=== PATIENT | female | born 1945 | race Caucasian/White ===

== ENCOUNTER 2022-12-05 08:53 | Emergency (ER) | payer MEDICARE, OTHER ==
[~2022-12-05] VITALS: Ht 162.6 cm; Wt 84.1 kg
[2022-12-05 09:04] VITALS: BP 150/75; PULSE 98; RESP 18; TEMP 96.3; O2SAT 92
[2022-12-05 10:25] LABS: BASOPHILS % (AUTO) 0.4 % (0-1); EOSINOPHILS # (AUTO) 0.1 X10'3 (0-0.9); EOSINOPHILS % (AUTO) 1.1 % (0-6); HEMATOCRIT 44.1 % (35.0-45.0); HEMOGLOBIN 14.4 g/dl (12.0-16.0); LYMPHOCYTES # (AUTO) 1.2 X10'3 (1.1-4.8); LYMPHOCYTES % (AUTO) 16.2 % (21-51); MEAN CORPUSCULAR HGB CONC 32.7 g/dL (33.0-36.5); MEAN CORPUSCULAR VOLUME 82.8 FL (78-98); MEAN PLATELET VOLUME 8.5 FL (7.4-10.4); MONOCYTES # (AUTO) 0.6 X10'3 (0-0.9); MONOCYTES % (AUTO) 7.6 % (2-12); NEUTROPHILS # (AUTO) 5.6 X10'3 (1.8-7.7); NEUTROPHILS % (AUTO) 74.7 % (42-75); PLATELET COUNT 241 X10'3 (140-440); RED BLOOD COUNT 5.33 X10'6 (4.20-5.60); RED CELL DISTRIBUTION WIDTH 15.5 % (11.5-14.5); WHITE BLOOD COUNT 7.4 X10'3 (4.5-11.0)
[2022-12-05 10:39] LABS: ALANINE AMINOTRANSFERASE 33 U/L (12-78); ALBUMIN 3.3 G/DL (3.4-5.0); ALBUMIN/GLOBULIN RATIO 0.9 (1.1-1.5); ALKALINE PHOSPHATASE 70 IU/L (46-116); ANION GAP 2 (8-16); ASPARTATE AMINO TRANSFERASE 17 U/L (10-37); BILIRUBIN,TOTAL 0.3 MG/DL (0.1-1.0); BLOOD UREA NITROGEN 16 MG/DL (7-18); CALCIUM 9.4 MG/DL (8.5-10.1); CHLORIDE 99 MMOL/L (99-107); CREATININE 0.84 MG/DL (0.40-0.90); GLUCOSE 262 MG/DL (70-104); POTASSIUM 3.9 MMOL/L (3.5-5.1); SODIUM 136 MMOL/L (135-145); TOTAL PROTEIN 6.9 G/DL (6.4-8.2); eCRCL 48 ML/MIN; eGFR 66 ML/MIN
[2022-12-08] MEDS ORDERED: PIOG15TA67 PO (17:53)
[2022-12-08] MEDS ORDERED: VENL75CA61 PO (17:53)
[2022-12-08] MEDS ORDERED: ESOM40CA54 PO (17:54)
[2022-12-08] MEDS ORDERED: OMEG-220 PO (17:54)
[2022-12-08] MEDS ORDERED: SEMA14TA2 PO (17:55)
[2022-12-08] MEDS ORDERED: UMEC1DIS INH (17:55)
[2022-12-08] MEDS ORDERED: IPRA4AER INH (17:55)
[2022-12-08] MEDS ORDERED: BUPR-317 PO (17:56)
[2022-12-08] MEDS ORDERED: ROSU10TA28 PO (18:23)
[2022-12-08] MEDS ORDERED: EMPA1TAB19 PO (18:23)
[2022-12-08] MEDS ORDERED: PRAM0.5T12 PO (18:24)
[2022-12-08] MEDS ORDERED: ACET-1017 PO (18:25)
[2022-12-08] MEDS ORDERED: CALC1CAP21 PO (18:26)
[2022-12-08] MEDS ORDERED: FERR-28 PO (18:27)
[2022-12-08] MEDS ORDERED: MAGN400T39 PO (18:27)
[2022-12-10] MEDS ORDERED: CEPH250T PO (14:23)
== END 2022-12-05 11:02 | disposition home or self-care (01) ==
LOC: ER 08:54
DX: L03.116 Cellulitis of left lower limb (principal); J44.9 Chronic obstructive pulmonary disease, unspecified; E11.9 Type 2 diabetes mellitus without complications
CPT/HCPCS: 36415; 80053; 85025; 99283

== ENCOUNTER 2022-12-14 08:58 | Emergency (ER) | payer MEDICARE, OTHER ==
[~2022-12-14] VITALS: Ht 162.6 cm; Wt 83.2 kg
[~2022-12-14 08:58] MED LIST: ACET-1017 PO; BUPR-317 PO; CALC1CAP21 PO; CEPH250T PO; EMPA1TAB19 PO; ESOM40CA54 PO; FERR-28 PO; IPRA4AER INH; MAGN400T39 PO; OMEG-220 PO; PIOG15TA67 PO; PRAM0.5T12 PO; ROSU10TA28 PO; SEMA14TA2 PO; UMEC1DIS INH; VENL75CA61 PO
[2022-12-14 12:37] LABS: BASOPHILS % (AUTO) 0.3 % (0-1); EOSINOPHILS # (AUTO) 0.1 X10'3 (0-0.9); EOSINOPHILS % (AUTO) 1.1 % (0-6); HEMOGLOBIN 14.9 g/dl (12.0-16.0); LYMPHOCYTES # (AUTO) 1.4 X10'3 (1.1-4.8); LYMPHOCYTES % (AUTO) 16.1 % (21-51); MEAN CORPUSCULAR HEMOGLOBIN 27.3 PG (27.0-31.0); MEAN CORPUSCULAR HGB CONC 33.2 g/dL (33.0-36.5); MEAN CORPUSCULAR VOLUME 82.3 FL (78-98); MEAN PLATELET VOLUME 8.7 FL (7.4-10.4); MONOCYTES # (AUTO) 0.6 X10'3 (0-0.9); MONOCYTES % (AUTO) 7.2 % (2-12); NEUTROPHILS # (AUTO) 6.4 X10'3 (1.8-7.7); NEUTROPHILS % (AUTO) 75.3 % (42-75); PLATELET COUNT 246 X10'3 (140-440); RED BLOOD COUNT 5.46 X10'6 (4.20-5.60); RED CELL DISTRIBUTION WIDTH 15.7 % (11.5-14.5); WHITE BLOOD COUNT 8.5 X10'3 (4.5-11.0)
[2022-12-14 12:43] LABS: ALANINE AMINOTRANSFERASE 41 U/L (12-78); ALBUMIN 3.7 G/DL (3.4-5.0); ALKALINE PHOSPHATASE 72 IU/L (46-116); ANION GAP 6 (8-16); ASPARTATE AMINO TRANSFERASE 26 U/L (10-37); BILIRUBIN,TOTAL 0.5 MG/DL (0.1-1.0); BLOOD UREA NITROGEN 18 MG/DL (7-18); BUN/CREATININE RATIO 24.3 (10.0-20.0); CALCIUM 9.4 MG/DL (8.5-10.1); CHLORIDE 99 MMOL/L (99-107); CREATININE 0.74 MG/DL (0.40-0.90); GLUCOSE 176 MG/DL (70-104); POTASSIUM 4.1 MMOL/L (3.5-5.1); SODIUM 137 MMOL/L (135-145); TOTAL CARBON DIOXIDE 32.1 MMOL/L (24-32); TOTAL PROTEIN 7.4 G/DL (6.4-8.2); eCRCL 55 ML/MIN; eGFR 76 ML/MIN
[2022-12-14 13:13] LABS: BILIRUBIN,URINE NEGATIVE (Neg); CLARITY,URINE CLEAR (Clear); COLOR,URINE YELLOW (Yellow); GLUCOSE, URINE >=1000 mg/dl (Neg); KETONES,URINE NEGATIVE (Neg); LEUKOCYTE ESTERASE ,URINE NEGATIVE (Neg); NITRITES, URINE NEGATIVE (Neg); OCCULT BLOOD,URINE NEGATIVE (Neg); PH,URINE 6.5 (4.8-8.0); PROTEIN,URINE NEGATIVE (Neg); UROBILINOGEN,URINE 0.2 E.U/dL (0.2-1.0)
[2022-12-14 13:16] LABS: UA COLLECTION TYPE CLN CATCH MIDSTREAM
[2022-12-14 13:29] LABS: SQUAMOUS EPITHELIAL CELL,UR MODERATE /LPF (FEW)
[2022-12-14] MEDS ORDERED: DOXY-411 PO (13:32)
[2022-12-14 13:34] LABS: BACTERIA,URINE FEW /HPF (Neg); RBC,URINE 0-2 /HPF (0-2); WBC,URINE 0-4 /HPF (0-4)
[2022-12-14] MEDS ORDERED: CLIN300C54 PO (13:59)
[2022-12-14] MEDS ORDERED: CIPR-259 PO (14:03)
[2022-12-14 14:12] VITALS: BP 129/66; PULSE 93; RESP 18; TEMP 98.3; O2SAT 96
== END 2022-12-14 14:17 | disposition home or self-care (01) ==
LOC: ER 08:59
DX: L03.115 Cellulitis of right lower limb (principal); J44.9 Chronic obstructive pulmonary disease, unspecified; E11.9 Type 2 diabetes mellitus without complications; Z88.0 Allergy status to penicillin; Z88.2 Allergy status to sulfonamides; Z88.6 Allergy status to analgesic agent; Z79.899 Other long term (current) drug therapy
CPT/HCPCS: 36415; 71045; 80053; 81001; 83605; 84145; 85025; 87040; 99284

== ENCOUNTER 2024-03-09 11:50 | Inpatient (IN) | payer MEDICARE, OTHER ==
[~2024-03-09] VITALS: Ht 162.6 cm; Wt 90.0 kg
[~2024-03-09 11:50] MED LIST changes: -BUPR-317 PO; +BUPR-561 PO; -CEPH250T PO; -ESOM40CA54 PO; +ESOM40CA66 PO; -OMEG-220 PO; +OMEG-270 PO; -ROSU10TA28 PO; +ROSU10TA72 PO
[2024-03-09 12:40] LABS: BASOPHILS % (AUTO) 0.4 % (0-1); EOSINOPHILS # (AUTO) 0.1 X10'3 (0-0.9); EOSINOPHILS % (AUTO) 1.8 % (0-6); HEMATOCRIT 35.7 % (35.0-45.0); HEMOGLOBIN 11.9 g/dl (12.0-16.0); LYMPHOCYTES # (AUTO) 1.1 X10'3 (1.1-4.8); LYMPHOCYTES % (AUTO) 16.1 % (21-51); MEAN CORPUSCULAR HEMOGLOBIN 28.2 PG (27.0-31.0); MEAN CORPUSCULAR HGB CONC 33.4 g/dL (33.0-36.5); MEAN CORPUSCULAR VOLUME 84.4 FL (78-98); MEAN PLATELET VOLUME 8.8 FL (7.4-10.4); MONOCYTES # (AUTO) 0.7 X10'3 (0-0.9); MONOCYTES % (AUTO) 9.8 % (2-12); NEUTROPHILS # (AUTO) 4.9 X10'3 (1.8-7.7); NEUTROPHILS % (AUTO) 71.9 % (42-75); PLATELET COUNT 169 X10'3 (140-440); RED BLOOD COUNT 4.22 X10'6 (4.20-5.60); WHITE BLOOD COUNT 6.9 X10'3 (4.5-11.0)
[2024-03-09 13:02] LABS: ALANINE AMINOTRANSFERASE 14 U/L (12-78); ALBUMIN 2.9 G/DL (3.4-5.0); ALKALINE PHOSPHATASE 62 IU/L (46-116); ASPARTATE AMINO TRANSFERASE 8 U/L (10-37); BILIRUBIN,TOTAL 0.5 MG/DL (0.1-1.0); BLOOD UREA NITROGEN 15 MG/DL (7-18); CALCIUM 8.9 MG/DL (8.5-10.1); CHLORIDE 100 MMOL/L (99-107); CREATININE 0.74 MG/DL (0.40-0.90); GLUCOSE 238 MG/DL (70-104); POTASSIUM 3.8 MMOL/L (3.5-5.1); SODIUM 138 MMOL/L (135-145); TOTAL CARBON DIOXIDE 33.4 MMOL/L (24-32)
[2024-03-09 13:10] LABS: PRO BRAIN NATRIURETIC PEPTIDE 4003 PG/ML (0-450)
[2024-03-09 14:01] LABS: ANION GAP 5 (8-16); BUN/CREATININE RATIO 20.3 (10.0-20.0); eCRCL 54 ML/MIN; eGFR 76 ML/MIN
[2024-03-09 14:02] LABS: ALBUMIN/GLOBULIN RATIO 0.9 (1.1-1.5)
[2024-03-09] MEDS: furosemide 20MG tablet PO ONE (15:09)
[2024-03-09] MEDS: potassium Cl 20 mEq SR tablet PO ONE (15:09)
[2024-03-09] MEDS: furosemide 40mg tablet PO ONE (15:21)
[2024-03-09] MEDS: ipratropium/albuterol 3ml nebule NEB ONE (15:24)
[2024-03-09 15:25] VITALS: PULSE 101; RESP 18; O2SAT 100
[2024-03-09 15:32] VITALS: PULSE 99; RESP 18; O2SAT 99
[2024-03-09] MEDS ORDERED: acetaminophen 325mg tablet PO PRN (23:35)
[2024-03-09] MEDS ORDERED: ondansetron/PF 4mg/2ml inj IV PRN (23:35)
[2024-03-09] MEDS ORDERED: mag hydrox/Alum hydrox/simeth 30ml oral suspension PO PRN (23:35)
[2024-03-09] MEDS ORDERED: magnesium sulf-water 4G/100mL 100 ML IV PRN (23:35)
[2024-03-09] MEDS ORDERED: magnesium hydroxide 30ml (MOM) UD suspension PO PRN (23:35)
[2024-03-09] MEDS ORDERED: potassium Cl 20 mEq SR tablet PO PRN ×2 (23:35)
[2024-03-09] MEDS ORDERED: magnesium sulf-water 2g/50mL 50 ML IV PRN (23:35)
[2024-03-09] MEDS ORDERED: magnesium Cl slow-release 64mg tablet PO PRN (23:35)
[2024-03-09] MEDS ORDERED: ipratropium/albuterol 3ml nebule NEB PRN (23:35)
[2024-03-09] MEDS ORDERED: potassium Cl 40MEQ/1/2NS 520ml 520 ML IV PRN (23:35)
[2024-03-09] MEDS ORDERED: glucagon, human recombinant 1mg kit SUBCUT PRN (23:40)
[2024-03-09] MEDS ORDERED: dextrose 50%-water 50ml dispensing syringe IV PRN ×2 (23:40)
[2024-03-09] MEDS ORDERED: DEXTROSE 15 GM of carb/4 tabs (each vial/BOTTLE has 4 tablets) PO PRN ×2 (23:40)
[2024-03-09] MEDS ORDERED: GABA-530 PO (23:55)
[2024-03-09] MEDS ORDERED: METF-900 PO (23:55)
[2024-03-10] VITALS (17 sets, daily range): BP systolic 119–135; BP diastolic 52–70; PULSE 79–114; RESP 13–20; TEMP 96.8–98.9; O2SAT 94–100
[2024-03-10 00:11] LABS: HEMOGLOBIN A1C 7.7 % (4.5-6.2)
[2024-03-10] MEDS: azithromycin/NS 500mg/250ml 250 ML IV ONE (02:08)
[2024-03-10] MEDS: methylPREDNISolone sod succ 125mg/2ml vial IV SCH ×2 (02:12→08:00)
[2024-03-10] MEDS: ipratropium/albuterol 3ml nebule NEB SCH (03:00)
[2024-03-10 03:23] LABS: BASOPHILS % (AUTO) 0.3 % (0-1); EOSINOPHILS # (AUTO) 0.2 X10'3 (0-0.9); EOSINOPHILS % (AUTO) 2.1 % (0-6); HEMATOCRIT 36.2 % (35.0-45.0); HEMOGLOBIN 12.2 g/dl (12.0-16.0); LYMPHOCYTES # (AUTO) 1.4 X10'3 (1.1-4.8); MEAN CORPUSCULAR HEMOGLOBIN 28.4 PG (27.0-31.0); MEAN CORPUSCULAR HGB CONC 33.6 g/dL (33.0-36.5); MEAN CORPUSCULAR VOLUME 84.3 FL (78-98); MEAN PLATELET VOLUME 8.8 FL (7.4-10.4); MONOCYTES % (AUTO) 11.4 % (2-12); NEUTROPHILS # (AUTO) 5.8 X10'3 (1.8-7.7); NEUTROPHILS % (AUTO) 69.2 % (42-75); PLATELET COUNT 177 X10'3 (140-440); RED BLOOD COUNT 4.29 X10'6 (4.20-5.60); RED CELL DISTRIBUTION WIDTH 13.9 % (11.5-14.5); WHITE BLOOD COUNT 8.4 X10'3 (4.5-11.0)
[2024-03-10 03:38] LABS: ALANINE AMINOTRANSFERASE 25 U/L (12-78); ALBUMIN 3.1 G/DL (3.4-5.0); ALKALINE PHOSPHATASE 69 IU/L (46-116); ANION GAP 3 (8-16); ASPARTATE AMINO TRANSFERASE 13 U/L (10-37); BILIRUBIN,TOTAL 0.6 MG/DL (0.1-1.0); BLOOD UREA NITROGEN 16 MG/DL (7-18); BUN/CREATININE RATIO 22.2 (10.0-20.0); CALCIUM 9.2 MG/DL (8.5-10.1); CHLORIDE 98 MMOL/L (99-107); CREATININE 0.72 MG/DL (0.40-0.90); GLUCOSE 176 MG/DL (70-104); MAGNESIUM 1.8 MG/DL (1.5-2.4); POTASSIUM 3.8 MMOL/L (3.5-5.1); SODIUM 140 MMOL/L (135-145); TOTAL CARBON DIOXIDE 39.2 MMOL/L (24-32); TOTAL PROTEIN 6.3 G/DL (6.4-8.2); eCRCL 56 ML/MIN; eGFR 78 ML/MIN
[2024-03-10] MEDS: BUPROPION HCL 150MG XL 24 HR 150 MG TAB PO SCH (07:43)
[2024-03-10] MEDS: acetaminophen 325mg tablet PO SCH (07:43)
[2024-03-10] MEDS: pantoprazole 40mg Tablet.DR PO SCH (07:44)
[2024-03-10] MEDS: OMEGA-3/DHA/EPA/FISH OIL 1 EACH CAPSULE.DR PO SCH (07:44)
[2024-03-10] MEDS: atorvastatin 20mg tablet PO SCH (07:44)
[2024-03-10] MEDS: docusate sod 100mg capsule PO SCH (07:44)
[2024-03-10] MEDS: calcium carbonate/vitamin D3 tablet PO SCH (07:44)
[2024-03-10] MEDS: ferrous sulfate 325mg tablet PO SCH (07:44)
[2024-03-10] MEDS: furosemide 10 MG/1 ML 10ml inj IV SCH (07:45)
[2024-03-10] MEDS: pramipexole 0.25mg tablet PO SCH (07:45)
[2024-03-10] MEDS: heparin, porcine 5000 units/ml vial SQ SCH (07:46)
[2024-03-10] MEDS: K and/or MAG REPLACEMENT MC SCH (08:00)
[2024-03-10] MEDS ORDERED: CefTRIAXone/D5W-Rocephin 1gm 50 ML IV SCH (08:00)
[2024-03-10] MEDS: METFORMIN HCL PO SCH (08:00)
[2024-03-10] MEDS: EMPAGLIFLOZIN PO SCH (08:00)
[2024-03-10] MEDS: levoFLOXACIN-Levaquin 500mg/D5 100 ML IV SCH (08:37)
[2024-03-10] MEDS: INSULIN LISPRO 100 UNIT/ML INSULN.PEN MULTI-DOSE SQ SCH ×2 (08:53→18:00)
[2024-03-10] MEDS ORDERED: iohexol 350MG/ML 100ml bottle IV ONE (10:44)
[2024-03-10 19:01] LABS: ABG BASE EXCESS 9.4 mmol/L (-2.0-3.0); ABG HCO3 35.2 mmol/L (21.0-28.0); ABG OXYGEN SATURATION 95.1 % (94.0-98.0); ABG PCO2 (T) 52.7 mmHg (32.0-45.0); ABG PH (T) 7.442 (7.350-7.450); ABG PO2 (T) 71.4 mmHg (83.0-108.0); ALLEN'S TEST POSITIVE; FHHb 4.9 % (0.0-5.0); FMetHb 0.3 % (0.0-1.5); FO2Hb 94.8 % (94.0-98.0); TOTAL HEMOGLOBIN 12.5 G/dl (12.0-16.0)
[2024-03-10 19:49] LABS: CHOLESTEROL 117 MG/DL (0-200); HDL CHOLESTEROL 58 MG/DL (35-60); LDL CHOLESTEROL 40 MG/DL (50-100); TRIGLYCERIDES 86 MG/DL (20-135)
[2024-03-10] MEDS: insulin Lispro (HumaLOG) vial - multi-dose SQ ONE (20:55)
[2024-03-10] MEDS: venlafaxine XR 75mg capsule (Q24H) PO SCH (21:00)
[2024-03-10] MEDS ORDERED: insulin glargine (Lantus) pen - multi-dose SQ SCH (21:00)
[2024-03-10] MEDS: magnesium oxide 400mg tablet PO SCH (21:01)
[2024-03-10] MEDS: gabapentin 100mg capsule PO SCH (21:01)
[2024-03-10] MEDS: insulin glargine (Lantus) pen - multi-dose SQ SCH (21:21)
[2024-03-11 06:30] VITALS: BP 149/53; PULSE 106; RESP 13; TEMP 98.4; O2SAT 97
[2024-03-11 06:36] LABS: BASOPHILS % (AUTO) 0.1 % (0-1); EOSINOPHILS % (AUTO) 0 % (0-6); HEMATOCRIT 37.4 % (35.0-45.0); HEMOGLOBIN 12.5 g/dl (12.0-16.0); LYMPHOCYTES # (AUTO) 0.5 X10'3 (1.1-4.8); LYMPHOCYTES % (AUTO) 4.6 % (21-51); MEAN CORPUSCULAR HGB CONC 33.5 g/dL (33.0-36.5); MEAN CORPUSCULAR VOLUME 83.6 FL (78-98); MEAN PLATELET VOLUME 9.5 FL (7.4-10.4); MONOCYTES # (AUTO) 0.4 X10'3 (0-0.9); MONOCYTES % (AUTO) 4.2 % (2-12); NEUTROPHILS # (AUTO) 8.9 X10'3 (1.8-7.7); NEUTROPHILS % (AUTO) 91.1 % (42-75); PLATELET COUNT 219 X10'3 (140-440); RED BLOOD COUNT 4.47 X10'6 (4.20-5.60); WHITE BLOOD COUNT 9.8 X10'3 (4.5-11.0)
[2024-03-11 06:48] LABS: ALANINE AMINOTRANSFERASE 16 U/L (12-78); ALBUMIN 3.2 G/DL (3.4-5.0); ALBUMIN/GLOBULIN RATIO 0.9 (1.1-1.5); ALKALINE PHOSPHATASE 64 IU/L (46-116); ANION GAP 3 (8-16); ASPARTATE AMINO TRANSFERASE 5 U/L (10-37); BILIRUBIN,TOTAL 0.5 MG/DL (0.1-1.0); BLOOD UREA NITROGEN 29 MG/DL (7-18); BUN/CREATININE RATIO 34.1 (10.0-20.0); CALCIUM 9.9 MG/DL (8.5-10.1); CHLORIDE 93 MMOL/L (99-107); CREATININE 0.85 MG/DL (0.40-0.90); GLUCOSE 349 MG/DL (70-104); POTASSIUM 4.8 MMOL/L (3.5-5.1); SODIUM 135 MMOL/L (135-145); TOTAL CARBON DIOXIDE 38.6 MMOL/L (24-32); TOTAL PROTEIN 6.7 G/DL (6.4-8.2); eCRCL 47 ML/MIN; eGFR 65 ML/MIN
[2024-03-11 07:51] VITALS: PULSE 105; RESP 20; O2SAT 93
[2024-03-11 07:59] VITALS: PULSE 100; RESP 18
[2024-03-11 08:00] VITALS: RESP 14; O2SAT 97
[2024-03-11] MEDS: INSULIN LISPRO 100 UNIT/ML INSULN.PEN MULTI-DOSE SQ SCH (09:03)
[2024-03-11 10:00] VITALS: BP 141/51; PULSE 62; RESP 17; TEMP 97.7; O2SAT 95
[2024-03-11] MEDS ORDERED: IPRA4AER INH (13:34)
[2024-03-11] MEDS ORDERED: PRED10TA23 PO (13:34)
[2024-03-11] MEDS ORDERED: LACT1CAP26 PO (13:34)
[2024-03-11] MEDS: INSULIN LISPRO 100 UNIT/ML INSULN.PEN MULTI-DOSE SQ ONE (13:42)
[2024-03-11] MEDS ORDERED: LEVO750T68 PO (13:56)
== END 2024-03-11 15:05 | disposition home health service (06) | DRG 189 ==
LOC: ER 11:50 → ED HOLD 20:01 → ORTHO 4S 03-10 05:05
PROVIDERS: ADMIT Surgery Surgical Critical Care; ATTEND Family Medicine
PROC: B32T1ZZ Computerized Tomography (CT Scan) of Left Pulmonary Artery using Low Osmolar Contrast (ICD-10-PCS; principal; 2024-03-10)
PROC: B3201ZZ Computerized Tomography (CT Scan) of Thoracic Aorta using Low Osmolar Contrast (ICD-10-PCS; 2024-03-10)
PROC: B32S1ZZ Computerized Tomography (CT Scan) of Right Pulmonary Artery using Low Osmolar Contrast (ICD-10-PCS; 2024-03-10)
DX: J96.01 Acute respiratory failure with hypoxia (principal); J44.1 Chronic obstructive pulmonary disease with (acute) exacerbation; E87.20 Acidosis, unspecified; I50.9 Heart failure, unspecified; J43.9 Emphysema, unspecified; Z66 Do not resuscitate; G20.A1 Parkinson's disease without dyskinesia, without mention of fluctuations; E11.40 Type 2 diabetes mellitus with diabetic neuropathy, unspecified; D64.9 Anemia, unspecified; F41.9 Anxiety disorder, unspecified; F32.A Depression, unspecified; Z96.643 Presence of artificial hip joint, bilateral; Z88.0 Allergy status to penicillin; Z88.2 Allergy status to sulfonamides; Z79.899 Other long term (current) drug therapy; Z90.49 Acquired absence of other specified parts of digestive tract; Z87.891 Personal history of nicotine dependence
CPT/HCPCS: 36415; 36600; 71045; 71275; 80053; 80061; 82803; 82948; 83036; 83735; 83880; 84484; 85018; 85025; 87081; 93005; 93306; 94640; 94760; 97116; 97161; 97530; 99285; G0378; J0456; J1644; J1815; J1940; J1956; J2919; Q9967

== ENCOUNTER 2024-03-17 07:43 | Emergency (ER) | payer MEDICARE, OTHER ==
[~2024-03-17] VITALS: Ht 162.6 cm; Wt 97.0 kg
[~2024-03-17 07:43] MED LIST changes: -ACET-1017 PO; -EMPA1TAB19 PO; +GABA-530 PO; +LACT1CAP26 PO; +LEVO750T68 PO; +METF-900 PO; +PRED10TA23 PO
[2024-03-17 07:52] VITALS: TEMP 98.6
[2024-03-17 09:22] LABS: BASOPHILS % (AUTO) 0.3 % (0-1); EOSINOPHILS % (AUTO) 0.3 % (0-6); HEMATOCRIT 38.2 % (35.0-45.0); LYMPHOCYTES # (AUTO) 0.9 X10'3 (1.1-4.8); LYMPHOCYTES % (AUTO) 9.6 % (21-51); MEAN CORPUSCULAR HEMOGLOBIN 28.5 PG (27.0-31.0); MEAN CORPUSCULAR HGB CONC 34.2 g/dL (33.0-36.5); MEAN CORPUSCULAR VOLUME 83.4 FL (78-98); MEAN PLATELET VOLUME 8.8 FL (7.4-10.4); MONOCYTES # (AUTO) 0.7 X10'3 (0-0.9); MONOCYTES % (AUTO) 7.3 % (2-12); NEUTROPHILS # (AUTO) 8.1 X10'3 (1.8-7.7); NEUTROPHILS % (AUTO) 82.5 % (42-75); PLATELET COUNT 207 X10'3 (140-440); RED BLOOD COUNT 4.57 X10'6 (4.20-5.60); WHITE BLOOD COUNT 9.9 X10'3 (4.5-11.0)
[2024-03-17 09:42] LABS: ALANINE AMINOTRANSFERASE 17 U/L (12-78); ALBUMIN 3.2 G/DL (3.4-5.0); ALKALINE PHOSPHATASE 65 IU/L (46-116); ANION GAP 4 (8-16); ASPARTATE AMINO TRANSFERASE 13 U/L (10-37); BILIRUBIN,TOTAL 0.5 MG/DL (0.1-1.0); BLOOD UREA NITROGEN 17 MG/DL (7-18); BUN/CREATININE RATIO 22.7 (10.0-20.0); CALCIUM 8.7 MG/DL (8.5-10.1); CHLORIDE 96 MMOL/L (99-107); CREATININE 0.75 MG/DL (0.40-0.90); GLUCOSE 222 MG/DL (70-104); POTASSIUM 4.6 MMOL/L (3.5-5.1); SODIUM 134 MMOL/L (135-145); TOTAL CARBON DIOXIDE 33.6 MMOL/L (24-32); TOTAL PROTEIN 6.4 G/DL (6.4-8.2); eCRCL 53 ML/MIN; eGFR 75 ML/MIN
[2024-03-17 09:49] LABS: PRO BRAIN NATRIURETIC PEPTIDE 3288 PG/ML (0-450)
[2024-03-17] MEDS ORDERED: iohexol 350MG/ML 100ml bottle IV ONE (09:53)
[2024-03-17 12:01] VITALS: BP 153/99; PULSE 52; RESP 18; O2SAT 99
== END 2024-03-17 12:07 | disposition home or self-care (01) ==
LOC: ER 07:44
DX: R04.2 Hemoptysis (principal); E11.9 Type 2 diabetes mellitus without complications; J20.9 Acute bronchitis, unspecified; J44.0 Chronic obstructive pulmonary disease with (acute) lower respiratory infection; Z88.0 Allergy status to penicillin; Z88.2 Allergy status to sulfonamides
CPT/HCPCS: 36415; 71045; 71275; 80053; 83880; 84484; 85025; 93005; 99285; Q9967

== ENCOUNTER 2024-07-28 10:49 | Inpatient (IN) | payer MEDICARE, OTHER ==
[~2024-07-28] VITALS: Ht 162.6 cm; Wt 90.9 kg
[2024-07-28] VITALS (8 sets, daily range): PULSE 85–110; RESP 16–22; O2SAT 91–98
[~2024-07-28 10:49] MED LIST changes: -BUPR-561 PO; +BUPR-726 PO; -PRED10TA23 PO
--- NOTE | 2024-07-28 11:09 | Physician Documentation ---
History of Present Illness ~ Chief Complaint: Shortness of Breath Stated Complaint: SOB Time Seen by MD: 11:01 HPI Anxiety, depression, COPD on 8 L HI OT followed by Dr. Barajas. She is presenting today with 3 weeks of cough and shortness of breath. Her symptoms initially began as a cold with nasal congestion cough. She improved and then shortly after developed a cough and shortness of breath. Cough was initially clear however has become more more productive over the last several days now green sputum. She initially had a fever 3 weeks ago has not had a fever since. She is expressing some shortness of breath above her baseline. She went to [facility] ent care today was diagnosed with pleural effusion and pneumonia via x-ray and then referred to the emergency department. She denies any lower extremity edema no calf pain or tenderness no history of venous thromboembolism Medication Reconciliation Allergies: Coded Allergies: Penicillins (Verified Allergy, Unknown, 07/28/24) Sulfa (Sulfonamide Antibiotics) (Verified Allergy, Unknown, 07/28/24) Scheduled Bupropion HCl (Bupropion Xl), 1 TAB PO QAM, (Reported) Calcium Carbonate/Vitamin D3 (Calcium 600 + Vit D 400 Softgl), 1 CAP PO Q12H, (Reported) Esomeprazole Magnesium (Esomeprazole Magnesium), 1 CAP PO BID, (Reported) Ferrous Sulfate (Iron), 1 TAB PO Q12H, (Reported) Gabapentin (Gabapentin), 1 CAP PO HS, (Reported) Ipratropium/Albuterol Sulfate (Combivent Respimat Inhal [place]), 2 PUFFS INH BID Lactobacillus Rhamnosus (Culturelle), 1 CAP PO BID Levofloxacin (Levofloxacin), 1 TAB PO DAILY Magnesium Oxide (Magnesium), 1 TAB PO HS, (Reported) Metformin Hcl* (Metformin ER*), 1 TAB PO BID, (Reported) [place]-3 Acid Ethyl Esters ([place]-3 Acid Ethyl Esters), 2 CAP PO BID, (Reported) Pioglitazone Hcl (Pioglitazone Hcl), 1 TAB PO DAILY, (Reported) Pramipexole Di-Hcl (Pramipexole Dihydrochloride), 1 TAB PO BID, (Reported) Rosuvastatin Calcium (Rosuvastatin Calcium), 1 TAB PO DAILY, (Reported) Semaglutide (Rybelsus), 1 TAB PO QAM, (Reported) Umeclidinium Brm/Vilanterol Tr (Anoro Ellipta 62.5-25 Mcg INH), 1 PUFFS INH DAILY, (Reported) Venlafaxine Hcl (Venlafaxine Hcl Er), 1 CAP PO HS, (Reported) Past Medical History Past Medical History: *CARDIOVASCULAR*, COPD, Diabetes, Cellulitis Past Surgical History: noncontributory Patient History: FH: emphysema FATHER, , Age: 74 MOTHER, , Age: 76 Lives In: Home Occupation: retired Review of Systems All Other Systems at this time: Reviewed and Negative Respiratory: Reports: cough, SOB with exertion Cardiovascular: Denies: chest pain Physical Exam Vital Signs: RN Vital Signs have been reviewed: Yes, Temperature: 98.6, Source: Oral, Heart Rate: 102, Respiratory Rate: 20, BP: 151/65, Pulse Oximetry: 96, Weight: 90.910 Oxygen Flow Rate: 8.0 Physical Exam Nasal cannula in place 8 L Bilateral minimal breath sounds, expiratory wheezes No murmur Abdomen is soft nontender Lower extremity no edema Progress Progress Note Discharge summary reviewed March 11, 2024 admitted at that time for acute exacerbation of advanced COPD with respiratory acidosis and compensatory metabolic alkalosis echocardiogram 03/2024 EF 65% Consulted hospitalist Tonia who agrees with management plan and graciously accept for admission Results/Orders Results/Orders Orders - ANTHONY MARION MD Culture Blood (07/28/24 11:00) Saline Lock (07/28/24 11:00) Oxygen (07/28/24 11:00) Chest,Single View (07/28/24 12:41) Covid19 Binax Poc Result Entry (07/28/24 15:16) Page Hospitalist (07/28/24 15:16) Fill Out Med Reconciliation (07/28/24 15:16) Completed Orders - ANTHONY MARION MD Cbc/Diff (07/28/24 11:00) BMP (07/28/24 11:00) PBNP (07/28/24 11:00) Lacticsepsis (07/28/24 11:00) Electrocardiogram (07/28/24 11:06) Ipratropium/Albuterol Nebule (Ipratrop/A (07/28/24 11:15) Chest,Single View (07/28/24 12:41) Ipratropium/Albuterol Nebule (Ipratrop/A (07/28/24 12:45) Methylprednisolone Sod Succ (Solumedrol (07/28/24 13:05) Ceftriaxone 2gm/D5w 50ml Bag (Rocephin 2 (07/28/24 15:20) Albuterol 2.5mg/3ml Nebule (Proventil 2. (07/28/24 15:20) * Rt Notification Q1H (07/28/24 15:16) Troponin (Single) (07/28/24 15:18) Procalcitonin (07/28/24 15:18) Medications Received in ER Medications (Trade) Dose Ordered Sig/Laura Route PRN Reason Start Time Stop Time Status Last Admin Dose Admin (ipratrop/ albuterol 0.5-3(2.5) MG/3ml nebule) 6 ml ONCE ONCE NEB 07/28/24 11:15 07/28/24 11:16 DC 07/28/24 12:33 6 ML (SoluMEDROL 125mg inj) 125 mg ONCE ONCE IV 07/28/24 13:05 07/28/24 13:06 DC 07/28/24 13:31 125 MG Ceftriaxone Sodium/Dextrose 50 ml @ 100 mls/hr ONCE ONCE IV 07/28/24 15:20 07/28/24 15:49 DC 07/28/24 16:29 100 MLS/HR (Proventil 2.5 MG/3ML nebule) 10 mg ONCE ONCE CONTNEB 07/28/24 15:20 07/28/24 15:21 DC 07/28/24 16:59 10 MG Azithromycin 250 ml @ 250 mls/hr ONCE ONCE IV 07/28/24 15:30 07/28/24 16:29 DC 07/28/24 16:29 250 MLS/HR Vital Signs 07/28/24 07/28/24 07/28/24 07/28/24 10:51 11:02 11:02 11:02 Temp 98.6 Pulse 102 98 Resp 20 20 20 B/P (MAP) 151/65 145/110 (122) Pulse Ox 96 97 98 O2 Delivery Nasal Cannula* O2 Flow Rate 8.0 8.0 8 FiO2 N/A 07/28/24 07/28/24 12:37 12:54 Pulse 85 85 Resp 22 19 Pulse Ox 98 98 O2 Delivery Nasal Cannula* Nasal Cannula* O2 Flow Rate 6 6 FiO2 44 44 Laboratory Tests Test 07/28/24 11:13 White Blood Count 7.3 Red Blood Count 4.51 Hemoglobin 12.0 Hematocrit 36.9 Mean Corpuscular Volume 82.0 Mean Corpuscular Hemoglobin 26.6 L Mean Corpuscular Hemoglobin Concent 32.4 L Red Cell Distribution Width 14.5 Platelet Count 228 Mean Platelet Volume 7.9 Neutrophils (%) (Auto) 73.9 Lymphocytes (%) (Auto) 16.5 L Monocytes (%) (Auto) 7.6 Eosinophils (%) (Auto) 1.5 Basophils (%) (Auto) 0.5 Neutrophils # (Auto) 5.4 Lymphocytes # (Auto) 1.2 Monocytes # (Auto) 0.6 Eosinophils # (Auto) 0.1 Basophils # (Auto) 0.0 CBC Comment Sodium Level 137 Potassium Level 4.4 Chloride Level 99 Carbon Dioxide Level 35.9 H Anion Gap 2 L Blood Urea Nitrogen 18 Creatinine 0.67 Estimated GFR/1.73 m2 85 BUN/Creatinine Ratio 26.9 H Glucose Level 125 H Lactic Acid Level 1.3 Calcium Level 8.7 Troponin I High Sensitivity 11 Pro-B-Type Natriuretic Peptide 126 Albumin 3.2 L Procalcitonin < 0.05 Chemistry Comments Microbiology Date/Time Source Procedure Growth Status 07/28/24 11:18 Blood Arm Left Blood Culture - Preliminary NEGATIVE (LESS THAN 24 HOURS) Resulted Re-Evaluation Re-evaluation : Progress I re-evaluated the patient at 3:15 p.m.. She is still on her baseline oxygen however she is still extensively wheezing and appears in mild respiratory distress. EKG/XRAY/CT/US/VASC/MRI EKG : Additional Comment EKG independently interpreted by myself time 11:22 a.m. indication dyspnea normal sinus rhythm rate 93 normal axis normal intervals no ST or T-wave abnormalities Chest X-Ray : Additional Comments Chest x-ray independently interpreted by myself shows no pneumothorax trace left pleural effusion normal cardiomediastinal silhouette Medical Decision Making Differential Dx:Considerations: Include: cardiogenic shock, CHF, COPD Departure Disposition: ADMITTED INPATIENT Admitted to Inpatient Unit: to hospitalist Impression: Primary Impression: Acute exacerbation of chronic obstructive airways disease Referrals: NO PRIMARY CARE PROVIDER (PCP) Critical Care Note Total Time (mins): 30 Critical Care Note The very real possibility of a deterioration of this patient's condition requir ed the highest level of my preparedness for sudden, emergent intervention. I provided critical care services, which included medication orders, frequent reevaluations of the patient's condition and response to treatment, ordering and reviewing test results, and discussing the case with various consultants. Excludes time spent performing separately billable procedures. The critical care time associated with the care of the patient was 30 minutes in the management of acute respiratory distress resistant to multiple breathing treatments Signature Scribe Signature: [email or web address] Attestation: ANTHONY Funes MD July 28, 2024 11:09
--- NOTE | 2024-07-28 11:24 | ELECTROCARDIOGRAPH REPORT ---
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 Talon Pina Measurements Intervals [place] Rate: 93 P: 81 GA: 150 QRS: 88 QRSD: 93 T: 71 QT: 344 QTc: 428 Interpretive Statements Sinus rhythm Borderline right axis deviation Low voltage, precordial leads Electronically Signed On 07-30-2024 11:02:[address] Talon Pina Please click the below link to view image of tracing.
[2024-07-28 11:33] LABS: BASOPHILS % (AUTO) 0.5 % (0-1); EOSINOPHILS # (AUTO) 0.1 X10'3 (0-0.9); EOSINOPHILS % (AUTO) 1.5 % (0-6); HEMATOCRIT 36.9 % (35.0-45.0); LYMPHOCYTES # (AUTO) 1.2 X10'3 (1.1-4.8); LYMPHOCYTES % (AUTO) 16.5 % (21-51); MEAN CORPUSCULAR HEMOGLOBIN 26.6 PG (27.0-31.0); MEAN CORPUSCULAR HGB CONC 32.4 g/dL (33.0-36.5); MEAN PLATELET VOLUME 7.9 FL (7.4-10.4); MONOCYTES # (AUTO) 0.6 X10'3 (0-0.9); MONOCYTES % (AUTO) 7.6 % (2-12); NEUTROPHILS # (AUTO) 5.4 X10'3 (1.8-7.7); NEUTROPHILS % (AUTO) 73.9 % (42-75); PLATELET COUNT 228 X10'3 (140-440); RED BLOOD COUNT 4.51 X10'6 (4.20-5.60); RED CELL DISTRIBUTION WIDTH 14.5 % (11.5-14.5); WHITE BLOOD COUNT 7.3 X10'3 (4.5-11.0)
[2024-07-28 11:53] LABS: ALBUMIN 3.2 G/DL (3.4-5.0); ANION GAP 2 (8-16); BLOOD UREA NITROGEN 18 MG/DL (7-18); BUN/CREATININE RATIO 26.9 (10.0-20.0); CALCIUM 8.7 MG/DL (8.5-10.1); CHLORIDE 99 MMOL/L (99-107); CREATININE 0.67 MG/DL (0.40-0.90); GLUCOSE 125 MG/DL (70-104); POTASSIUM 4.4 MMOL/L (3.5-5.1); PRO BRAIN NATRIURETIC PEPTIDE 126 PG/ML (0-450); SODIUM 137 MMOL/L (135-145); TOTAL CARBON DIOXIDE 35.9 MMOL/L (24-32); eCRCL 60 ML/MIN; eGFR 85 ML/MIN
[2024-07-28] MEDS: ipratropium/albuterol 3ml nebule NEB ONE (12:33)
[2024-07-28] MEDS: ipratropium/albuterol 3ml nebule ONE (12:45)
--- NOTE | 2024-07-28 13:08 | RADIOLOGY REPORT ---
CHEST RADIOGRAPH Indication: sob Technique: Single frontal view of the chest was obtained COMPARISON: DI CHEST,SINGLE VIEW on DOS: 03/17/24, DI CHEST,SINGLE VIEW on DOS: 03/09/24, DI CHEST,SINGL E VIEW on DOS: 12/14/22 FINDINGS: Lines and Tubes: None Lungs: Clear Pleura: No effusion. No pneumothorax. Cardiomediastinal contours: Unremarkable Bones: Unremarkable IMPRESSION: No acute disease.
[2024-07-28] MEDS: methylPREDNISolone sod succ 125mg/2ml vial IV ONE (13:31)
[2024-07-28] MEDS ORDERED: mag hydrox/Alum hydrox/simeth 30ml oral suspension PO PRN (15:30)
[2024-07-28] MEDS ORDERED: magnesium sulf-water 2g/50mL 50 ML IV PRN (15:30)
[2024-07-28] MEDS ORDERED: HYDROcodone/acetaminophen 5mg/325mg tablet PO PRN (15:30)
[2024-07-28] MEDS ORDERED: morphine 2 MG/ML inj. syringe IV PRN ×2 (15:30)
[2024-07-28] MEDS ORDERED: potassium Cl 20 mEq SR tablet PO PRN ×2 (15:30)
[2024-07-28] MEDS ORDERED: HYDROcodone/acetaminophen 10/325mg tab PO PRN (15:30)
[2024-07-28] MEDS ORDERED: magnesium hydroxide 30ml (MOM) UD suspension PO PRN (15:30)
[2024-07-28] MEDS ORDERED: albuterol 2.5 MG/3 ML nebule NEB PRN (15:30)
[2024-07-28] MEDS ORDERED: acetaminophen 325mg tablet PO PRN ×2 (15:30)
[2024-07-28] MEDS ORDERED: ondansetron/PF 4mg/2ml inj IV PRN (15:30)
[2024-07-28] MEDS ORDERED: potassium Cl 40MEQ/1/2NS 520ml 520 ML IV PRN (15:30)
[2024-07-28] MEDS ORDERED: magnesium sulf-water 4G/100mL 100 ML IV PRN (15:30)
[2024-07-28] MEDS ORDERED: glucagon, human recombinant 1mg kit SUBCUT PRN (15:50)
[2024-07-28] MEDS ORDERED: DEXTROSE 15 GM of carb/4 tabs (each vial/BOTTLE has 4 tablets) PO PRN ×2 (15:50)
[2024-07-28] MEDS ORDERED: hydrALAZINE 20mg/ml inj. IV PRN (15:50)
[2024-07-28] MEDS ORDERED: dextrose 50%-water 50ml dispensing syringe IV PRN ×2 (15:50)
--- NOTE | 2024-07-28 15:50 | HISTORY AND PHYSICAL ---
History & Physical Providers to CC ~ History of Present Illness Reason for Admit\Complaint: Acute COPD exacerbation, acute hypoxic respiratory failure History of Present Illness Letty Segovia is a 78-year-old female with a past medical history of COPD on 8L home O2 and IDDM who presented to the ED with chief complaint of progressively worsening productive cough and shortness of breath x 3 weeks. Patient reports upper respiratory infection prior to onset of symptoms 3 weeks ago. Patient states sputum was initially clear which turned into green. However, she reports improving sputum production now. Patient denies prior [place]/CAD, CVA, cardiac arrhythmia, DVT/PE, or GIB. Patient denies chest pain, palpitations, abdominal pain, n/v/d. Patient is to be admitted for further workups and treatment. Allergies: Coded Allergies: Penicillins (Verified Allergy, Unknown, 07/28/24) Sulfa (Sulfonamide Antibiotics) (Verified Allergy, Unknown, 07/28/24) Home Medications Home Medications Active Levofloxacin 750 Mg Tablet 1 Tab PO DAILY 5 Days Culturelle (Lactobacillus Rhamnosus) 10 Billion Cell Capsule 1 Cap PO BID 30 Days Combivent Respimat Inhal [place] (Albuterol/Ipratropium) 20 Mcg-100 Mcg/Actuation Aer.w.adap 2 Puffs INH BID 30 Days Reported Metformin ER* (Metformin HCl) 500 Mg Tab.sr.24h 1 Tab PO BID Gabapentin 100 Mg Capsule 1 Cap PO HS Magnesium (Magnesium Oxide) 400 Mg Magnesium Tablet 1 Tab PO HS 30 Days Iron (Ferrous Sulfate) 325 Mg (65 Mg Iron) Tablet 1 Tab PO Q12H 30 Days Calcium 600 + Vit D 400 Softgl (Calcium Carbonate/Vitamin D3) 600 Mg Calcium-10 Mcg (400 Unit) Capsule 1 Cap PO Q12H 30 Days Pramipexole Dihydrochloride (Pramipexole Di-Hcl) 0.5 Mg Tablet 1 Tab PO BID Rosuvastatin Calcium 10 Mg Tablet 1 Tab PO DAILY Bupropion Xl (Bupropion HCl) 150 Mg Tab.er.24h 1 Tab PO QAM Rybelsus (Semaglutide) 14 Mg Tablet 1 Tab PO QAM Anoro Ellipta 62.5-25 Mcg INH (Umeclidinium Brm/Vilanterol Tr) 62.5 Mcg-25 Mcg/Actuation Disk.w.dev 1 Puffs INH DAILY [place]-3 Acid Ethyl Esters 1 Gram Capsule 2 Cap PO BID Esomeprazole Magnesium 40 Mg Capsule. 1 Cap PO BID Venlafaxine Hcl Er (Venlafaxine Hcl) 75 Mg Cap.sr.24h 1 Cap PO HS Pioglitazone Hcl 15 Mg Tablet 1 Tab PO DAILY Past Medical History Past Medical History COPD Emphysema Hyperlipidemia IDDM Past Surgical History Surgical History Comment Denies Family History Family History: FH: emphysema FATHER, , Age: 74 MOTHER, , Age: 76 Past Social History Social History Comment Alcohol: Denies Tobacco: Former smoker, quit 35 years ago, 27 pack year history Illicit drug use: Denies Living situation: Lives at home alone ROS ROS Other than positives in HPI, all 14 review of systems are negative Exam Vitals: Vital Signs Date Time Temp Pulse Resp B/P (MAP) Pulse Ox O2 Delivery O2 Flow Rate FiO2 07/28/24 12:54 85 19 98 Nasal Cannula* 6 44 07/28/24 11:02 07/28/24 10:51 98.6 General: Generalized weakness, A&Ox 3, NAD HEENT: Normocephalic, PERRLA Neck: Supple, trachea midline, no JVD Chest: Rhonchi b/l lungs Cardiovascular: RRR, S1&S2 Abdomen: Soft and nontender Extremities: No cyanosis/clubbing/or edema Central Nervous System: CN II-XII intact, no focal deficits Musculoskeletal: No paraspinal muscle tenderness, no muscle spasm Skin: Warm and intact Diagnostic Data Last Recorded Lab Results: 07/28/24 1113 07/28/24 1113 Additional Plan # Acute COPD exacerbation # Acute hypoxic respiratory failure -bicarb elevated, chest x-ray negative, EKG sinus at 93bpm, normal axis normal intervals no ST or T-wave abnormalities, Well's score 1.5 -start abx, steroid, bronchodilators, supplemental oxygen -follow ABG, CT chest # IDDM # HLD # HTN -follow A1c, lipid panel; hyper/hypoglycemic protocol, losartan, prn hydralazine DVT/VTE Prophylaxis: heparin Code Status: DNR/DNI I spent a total of 35 minutes discussing Advanced Care Planning measures with the patient. Advance care planning: Discussed with patient the importance of advance care planning in case of emergent situation. We discussed various resuscitative measures/ ACP with the patient at the time of admission. Patient voiced understanding and patient has decided on a DNR/DNI status. Date of Service: July 28, 2024 Billing Provider: TOMASA RUIZ Common Visit Codes: [id number] INP/OBS CARE (HIGH) Secondary Visit Codes: [id number] CARE PLAN 30 MINUTES TOMASA RUIZ July 28, 2024 15:50
[2024-07-28] MEDS: CefTRIAXone 2gm/D5W 50ml BAG 50 ML IV ONE (16:29)
[2024-07-28] MEDS: azithromycin/NS 500mg/250ml 250 ML IV ONE (16:29)
[2024-07-28] MEDS ORDERED: CefTRIAXone/D5W-Rocephin 1gm 50 ML IV ONE (16:55)
[2024-07-28] MEDS: ipratropium/albuterol 3ml nebule NEB SCH (16:59)
[2024-07-28] MEDS: albuterol 2.5 MG/3 ML nebule CONTNEB ONE (16:59)
[2024-07-28] MEDS: benzonatate 100mg capsule PO ONE (18:16)
[2024-07-28] MEDS: losartan 50mg tablet PO ONE (18:17)
[2024-07-28] MEDS: INSULIN LISPRO 100 UNIT/ML INSULN.PEN MULTI-DOSE SQ SCH (18:21)
[2024-07-28 19:03] LABS: ABG HCO3 31.8 mmol/L (21.0-28.0); ABG OXYGEN SATURATION 94.9 % (94.0-98.0); ABG PCO2 (T) 57.1 mmHg (32.0-45.0); ABG PH (T) 7.364 (7.350-7.450); ABG PO2 (T) 77.5 mmHg (83.0-108.0); ALLEN'S TEST POSITIVE; FCOHb 0.2 % (0.5-1.5); FHHb 5.1 % (0.0-5.0); FMetHb 0.3 % (0.0-1.5); FO2Hb 94.4 % (94.0-98.0); MODE NASAL CANNULA; TOTAL HEMOGLOBIN 12.6 G/dl (12.0-16.0)
[2024-07-28] MEDS: docusate sod 100mg capsule PO SCH (19:46)
[2024-07-28] MEDS: K and/or MAG REPLACEMENT MC SCH (19:46)
[2024-07-28] MEDS: methylPREDNISolone sod succ 125mg/2ml vial IV SCH (19:46)
[2024-07-28] MEDS: heparin, porcine 5000 units/ml vial SQ SCH (19:47)
--- NOTE | 2024-07-28 19:57 | RADIOLOGY REPORT ---
Procedure: CT [facility] Study Date and Requested Time: 07/28/2024 04:41 P M History: copd, hypoxia Comparison: None Dose: CTDI: 18.67 mGy DLP: 743.22 mGycm Technique: Multiplanar images obtained through the chest without contrast Findings: The thyroid gland is unremarkable. Heart size is within normal limits. No evidence of aortic aneurysm. Borderline distention of the pulm onary trunk up to 3 cm. Moderate to severe emphysematous changes of bilateral lungs. No pneumothorax or pleural effusion. Rig ht upper lobe, right middle lobe, lingula and bilateral lower lobe atelectasis / scarring. Mediastinal lymphadenopathy measuring up to 1 cm. Soft tissues are unremarkable. No destructive osseo us lesions are noted. [id number]-[id number] degenerative changes of the thoracic spine sclerotic focus of the left superior posterior T3 vertebral body which may represent a bone islands/blastic lesion. Mult ilevel chronic appearing mild loss of vertebral body height of the mid and lower thoracic spine. Status post cholecystectomy. Small hiatal hernia. Large amount of fecal material within the partially visualized colon. Colonic diverticulosis without diverticulitis. Otherwise, Partial view of the up per abdomen is unremarkable. Impression: No evidence of acute intrathoracic abnormalities. Moderate to severe emphysematous changes of bilateral lungs. Right upper lobe, lingula, right middle lobe and bilateral lower lobe atelectasis / scarring. Mediastinal lymphadenopathy measuring up to 1 cm which may be reactive/neoplastic.
[2024-07-28] MEDS: atorvastatin 20mg tablet PO SCH (21:00)
[2024-07-29] VITALS (15 sets, daily range): BP systolic 126–156; BP diastolic 54–64; PULSE 91–104; RESP 16–18; TEMP 97.3–98; O2SAT 94–99
[2024-07-29 02:43] LABS: HEMOGLOBIN A1C 6.2 % (4.5-6.2)
[2024-07-29 02:52] LABS: CHOL/HDL RATIO 2.1 (0.00-4.99); CHOLESTEROL 134 MG/DL (0-200); HDL CHOLESTEROL 63 MG/DL (35-60); LDL CHOLESTEROL 60 MG/DL (50-100); MAGNESIUM 2.1 MG/DL (1.5-2.4); POTASSIUM 5.1 MMOL/L (3.5-5.1); TRIGLYCERIDES 49 MG/DL (20-135)
[2024-07-29] MEDS: CefTRIAXone/D5W-Rocephin 1gm 50 ML IV SCH (07:22)
[2024-07-29] MEDS: azithromycin/NS 500mg/250ml 250 ML IV SCH (07:40)
[2024-07-29] MEDS: losartan 50mg tablet PO SCH (07:57)
[2024-07-29] MEDS ORDERED: CefTRIAXone/D5W-Rocephin 1gm 50 ML IV SCH (08:00)
[2024-07-29 08:44] LABS: BASOPHILS % (AUTO) 0.1 % (0-1); EOSINOPHILS % (AUTO) 0 % (0-6); HEMATOCRIT 35.5 % (35.0-45.0); HEMOGLOBIN 11.8 g/dl (12.0-16.0); LYMPHOCYTES # (AUTO) 0.5 X10'3 (1.1-4.8); LYMPHOCYTES % (AUTO) 6.7 % (21-51); MEAN CORPUSCULAR HGB CONC 33.3 g/dL (33.0-36.5); MEAN CORPUSCULAR VOLUME 81.2 FL (78-98); MONOCYTES # (AUTO) 0.2 X10'3 (0-0.9); MONOCYTES % (AUTO) 3.3 % (2-12); NEUTROPHILS # (AUTO) 6.6 X10'3 (1.8-7.7); NEUTROPHILS % (AUTO) 89.9 % (42-75); PLATELET COUNT 226 X10'3 (140-440); RED BLOOD COUNT 4.38 X10'6 (4.20-5.60); RED CELL DISTRIBUTION WIDTH 14.7 % (11.5-14.5); WHITE BLOOD COUNT 7.3 X10'3 (4.5-11.0)
[2024-07-29 09:04] LABS: ALANINE AMINOTRANSFERASE 18 U/L (12-78); ALBUMIN/GLOBULIN RATIO 0.8 (1.1-1.5); ALKALINE PHOSPHATASE 72 IU/L (46-116); ANION GAP 4 (8-16); ASPARTATE AMINO TRANSFERASE 10 U/L (10-37); BILIRUBIN,TOTAL 0.3 MG/DL (0.1-1.0); BLOOD UREA NITROGEN 20 MG/DL (7-18); CALCIUM 8.8 MG/DL (8.5-10.1); CHLORIDE 99 MMOL/L (99-107); CREATININE 0.77 MG/DL (0.40-0.90); GLUCOSE 307 MG/DL (70-104); POTASSIUM 4.6 MMOL/L (3.5-5.1); SODIUM 136 MMOL/L (135-145); TOTAL CARBON DIOXIDE 33.4 MMOL/L (24-32); TOTAL PROTEIN 6.6 G/DL (6.4-8.2); eCRCL 52 ML/MIN; eGFR 73 ML/MIN
[2024-07-29] MEDS: insulin glargine (Lantus) VIAL- multi-dose SQ ONE (12:09)
[2024-07-29] MEDS ORDERED: FLUT1BLS4 INH (12:47)
--- NOTE | 2024-07-29 15:06 | PROGRESS NOTE ---
Daily Progress Note Providers to CC ~ Antibiotic Timeout Antibiotic Ordered?: Yes Subjective No acute events overnight. Patient examined at bedside. No new complaints, not in acute distress. Patient denies chest pain, sob, palpitations, abdominal pain, n/v/d. Tele sinus tachycardia in 100s-110s, on 6L O2, labs notable for hyperglycemia. ABG indicates compensated respiratory acidosis. CT chest shows moderate to severe emphysematous changes of bilateral lungs consistent with history and presentation. 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: CN II-XII intact, no focal deficits Musculoskeletal: No paraspinal muscle tenderness, no muscle spasm Skin: Warm and intact Problem\Assessment\Plan # Acute COPD exacerbation # Emphysema # Acute hypercapnic hypoxic respiratory failure # Respiratory acidosis -bicarb elevated, chest x-ray negative, EKG sinus at 93bpm, normal axis normal intervals no ST or T-wave abnormalities, Well's score 1.5 -start abx, steroid, bronchodilators, supplemental oxygen -follow ABG, CT chest -07/29: CT chest shows moderate to severe emphysematous changes of bilateral lungs consistent with history and presentation; ABG indicates compensated respiratory acidosis. -tele sinus tachycardia in 100s-110s, metoprolol tart oral to target HR<110 # IDDM # Hyperglycemia # HLD # HTN -follow A1c, lipid panel; Lantus, hyper/hypoglycemic protocol, losartan, prn hydralazine -07/29: A1c 6.2%, LDL 60 DVT/VTE Prophylaxis: heparin Code Status: DNR/DNI Date of Service: July 29, 2024 Billing Provider: SARA,TOMASA S VALVE PIPE IRRIGATOR Common Visit Codes: [id number] INP/OBS CARE(HIGH) TOMASA RUIZ VALVE PIPE IRRIGATOR July 29, 2024 15:06
[2024-07-29] MEDS: metoprolol tartrate 25mg tablet PO ONE (15:44)
[2024-07-29] MEDS ORDERED: BUPR-72 PO (19:50)
[2024-07-29] MEDS ORDERED: LANTUS SQ (19:54)
[2024-07-29] MEDS ORDERED: HUM7525 SQ (19:54)
[2024-07-29] MEDS ORDERED: LANTUS SUBCUT (19:54)
[2024-07-29] MEDS: INSULIN LISPRO 100 UNIT/ML INSULN.PEN MULTI-DOSE SQ SCH (20:54)
[2024-07-29] MEDS: metoprolol tartrate 25mg tablet PO SCH (20:56)
[2024-07-29] MEDS: venlafaxine XR 75mg capsule (Q24H) PO ONE (23:31)
[2024-07-30] VITALS (11 sets, daily range): BP systolic 104–134; BP diastolic 53–59; PULSE 76–91; RESP 16; TEMP 97.6–98.9; O2SAT 94–97
[2024-07-30 06:51] LABS: BASOPHILS % (AUTO) 0.1 % (0-1); EOSINOPHILS % (AUTO) 0 % (0-6); HEMATOCRIT 37.4 % (35.0-45.0); HEMOGLOBIN 12.5 g/dl (12.0-16.0); LYMPHOCYTES # (AUTO) 0.5 X10'3 (1.1-4.8); LYMPHOCYTES % (AUTO) 4.9 % (21-51); MEAN CORPUSCULAR HEMOGLOBIN 27.1 PG (27.0-31.0); MEAN CORPUSCULAR HGB CONC 33.4 g/dL (33.0-36.5); MEAN CORPUSCULAR VOLUME 81.2 FL (78-98); MEAN PLATELET VOLUME 8.6 FL (7.4-10.4); MONOCYTES # (AUTO) 0.4 X10'3 (0-0.9); MONOCYTES % (AUTO) 3.3 % (2-12); NEUTROPHILS # (AUTO) 10.1 X10'3 (1.8-7.7); NEUTROPHILS % (AUTO) 91.7 % (42-75); PLATELET COUNT 226 X10'3 (140-440); RED CELL DISTRIBUTION WIDTH 14.8 % (11.5-14.5); WHITE BLOOD COUNT 11.1 X10'3 (4.5-11.0)
[2024-07-30 07:08] LABS: ALANINE AMINOTRANSFERASE 18 U/L (12-78); ALBUMIN 3.2 G/DL (3.4-5.0); ALBUMIN/GLOBULIN RATIO 0.9 (1.1-1.5); ALKALINE PHOSPHATASE 72 IU/L (46-116); ANION GAP 4 (8-16); ASPARTATE AMINO TRANSFERASE 14 U/L (10-37); BILIRUBIN,TOTAL 0.3 MG/DL (0.1-1.0); BLOOD UREA NITROGEN 24 MG/DL (7-18); BUN/CREATININE RATIO 32.4 (10.0-20.0); CALCIUM 9.1 MG/DL (8.5-10.1); CHLORIDE 99 MMOL/L (99-107); CREATININE 0.74 MG/DL (0.40-0.90); GLUCOSE 280 MG/DL (70-104); MAGNESIUM 2.1 MG/DL (1.5-2.4); POTASSIUM 4.8 MMOL/L (3.5-5.1); SODIUM 137 MMOL/L (135-145); TOTAL CARBON DIOXIDE 33.8 MMOL/L (24-32); TOTAL PROTEIN 6.8 G/DL (6.4-8.2); eCRCL 54 ML/MIN; eGFR 76 ML/MIN
[2024-07-30] MEDS ORDERED: CEFD300C3 PO (08:52)
[2024-07-30] MEDS ORDERED: PRED10TA23 PO (08:52)
[2024-07-30] MEDS ORDERED: LOSA50TA64 PO (08:52)
[2024-07-30] MEDS ORDERED: ASPI81TA52 PO (08:52)
[2024-07-30] MEDS ORDERED: CODE10LI2 PO (08:58)
--- NOTE | 2024-07-30 12:13 | DISCHARGE SUMMARY ---
Discharge Summary Providers to CC ~ Discharge Summary Admission Diagnosis: acute COPD exacerbation Hospital Course DATE OF ADMISSION: 07/28/24 DATE OF DISCHARGE: 07/30/24 Discharge Diagnosis\Comment: Acute COPD exacerbation Emphysema Acute hypercapnic hypoxic respiratory failure Respiratory acidosis IDDM Hyperglycemia HLD HTN Operations\Procedures: None Consultants: None Complications: None Condition on DC: Stable New Medications: Aspirin (Aspirin EC) 81 Mg Tablet.dr 1 TAB PO DAILY for 30 Days, #30 TAB Cefdinir (Cefdinir) 300 Mg Capsule 1 CAP PO Q12H for 5 Days, #10 CAP 0 Refills Codeine Phosphate/Guaifenesin (Guaifen-Codeine 200-20 mg/10Ml) 20 Mg-200 Mg/10 Ml Liquid 5 ML PO Q6H PRN PRN for cough and congestion for 6 Days, #120 ML 0 Refills Metoprolol Succinate (Metoprolol Succinate) 25 Mg Tab.sr.24h 25 MG PO DAILY for 30 Days, #30 TAB.SR Prednisone (Prednisone) 10 Mg Tablet 0 PO DAILY, #42 TAB Take 6 tabs/day x2 days then 5 daily x2 days 4 daily x2 days 3 daily x2 days 2 daily x2 days 1 daily x2 days then stop. Losartan Potassium (Losartan Potassium) 50 Mg Tablet 50 MG PO DAILY for 30 Days, #30 TAB Continued Medications: Bupropion HCl (Bupropion HCl Sr) 150 Mg Tablet.er 1 TAB PO BID Calcium Carbonate/Vitamin D3 (Calcium 600 + Vit D 400 Softgl) 600 Mg Calcium-10 Mcg (400 Unit) Capsule 1 CAP PO Q12H for 30 Days, #60 CAP 0 Refills Esomeprazole Magnesium (Esomeprazole Magnesium) 40 Mg Capsule.dr 1 CAP PO BID Ferrous Sulfate (Iron) 325 Mg (65 Mg Iron) Tablet 1 TAB PO Q12H for 30 Days, #60 TAB 0 Refills Fluticasone/Umeclidin/Vilanter (Trelegy Ellipta 100-62.5-25) 100-62.5 Blst.w.dev 1 PUFFS INH DAILY Gabapentin (Gabapentin) 100 Mg Capsule 1 CAP PO DAILY Insulin Aspart (Novolog) 100 Unit/Ml (70-30) Insuln.pen 1 UNITS SQ, UNIT Insulin Glargine,Hum.rec.anlog* (Lantus*) 100 Unit/1 Ml Vial 10 UNITS SUBCUT HS for 30 Days, #5 ML Insulin Glargine,Hum.rec.anlog* (Lantus*) 100 Unit/1 Ml Vial 12 UNITS SQ DAILY, EACH Ipratropium/Albuterol Sulfate (Combivent Respimat Inhal [place]) 20 Mcg-100 Mcg/Actuation Aer.w.adap 2 PUFFS INH BID for 30 Days Metformin Hcl* (Metformin ER*) 500 Mg Tab.sr.24h 2 TAB PO DAILY [place]-3 Acid Ethyl Esters ([place]-3 Acid Ethyl Esters) 1 Gram Capsule 2 CAP PO BID Pioglitazone Hcl (Pioglitazone Hcl) 15 Mg Tablet 1 TAB PO DAILY Pramipexole Di-Hcl (Pramipexole Dihydrochloride) 0.5 Mg Tablet 1 TAB PO BID Rosuvastatin Calcium (Rosuvastatin Calcium) 10 Mg Tablet 1 TAB PO DAILY Semaglutide (Rybelsus) 14 Mg Tablet 1 TAB PO QAM Venlafaxine Hcl (Venlafaxine Hcl Er) 75 Mg Cap.sr.24h 1 CAP PO HS Discharge Summary: History of Present Illness Letty Segovia is a 78-year-old female with a past medical history of COPD on 8L home O2 and IDDM who presented to the ED with chief complaint of progressively worsening productive cough and shortness of breath x 3 weeks. Patient reports upper respiratory infection prior to onset of symptoms 3 weeks ago. Patient states sputum was initially clear which turned into green. However, she reports improving sputum production now. Patient denies prior [place]/CAD, CVA, cardiac arrhythmia, DVT/PE, or GIB. Patient denies chest pain, palpitations, abdominal pain, n/v/d. Patient is to be admitted for further workups and treatment. Hospital Course Initial findings were notable for hypoxia requiring supplemental oxygen, sinus tachycardia in 100s-110s, ABG indicating respiratory acidosis, CT chest rev ealing moderate to severe emphysematous changes of bilateral lungs. Patient was treated with steroid, bronchodilators, supplemental oxygen, empirical antibiotics, oral metoprolol. With the start of treatment, patient's oxygen demand went down. Patient did not experience further complications throughout the entire hospital stay and remained clinically and hemodynamically stable. Charisma esposito was seen and examined on the day of discharge. On day of discharge, vss and labs unremarkable. All labs, diagnostic workups, discharge plan discussed with patient in details during visit before discharge. All questions and concerns answered to the best of my professional knowledge. Patient is to discharged with HH and to follow-up with PCP and her dialysis clinical manager Dr. Cedillo within 2 weeks. 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
[2024-07-30] MEDS ORDERED: METO-395 PO (12:15)
[2024-07-30] MEDS ORDERED: venlafaxine XR 75mg capsule (Q24H) PO SCH (21:00)
[2024-07-30] MEDS ORDERED: insulin glargine (Lantus) pen - multi-dose SQ SCH ×2 (21:00)
== END 2024-07-30 11:30 | disposition home health service (06) | DRG 189 ==
LOC: ER 10:49 → ED HOLD 15:34 → ORTHO 4S 07-29 12:17
PROVIDERS: ADMIT Nurse Practitioner Family; ATTEND Nurse Practitioner Family
DX: J96.01 Acute respiratory failure with hypoxia (principal); J44.1 Chronic obstructive pulmonary disease with (acute) exacerbation; E87.29 Other acidosis; F41.9 Anxiety disorder, unspecified; Z66 Do not resuscitate; F32.A Depression, unspecified; J96.02 Acute respiratory failure with hypercapnia; J43.9 Emphysema, unspecified; E11.65 Type 2 diabetes mellitus with hyperglycemia; E78.5 Hyperlipidemia, unspecified; I10 Essential (primary) hypertension; Z88.2 Allergy status to sulfonamides; Z88.0 Allergy status to penicillin; Z79.84 Long term (current) use of oral hypoglycemic drugs; Z79.899 Other long term (current) drug therapy; Z99.81 Dependence on supplemental oxygen; Z87.891 Personal history of nicotine dependence
CPT/HCPCS: 36415; 36600; 71045; 71250; 80048; 80053; 80061; 82803; 82948; 83036; 83605; 83735; 83880; 84132; 84145; 84484; 85018; 85025; 87040; 87081; 93005; 94640; 94664; 94760; 96365; 96368; 96375; 97161; 97530; 99291; A7015; G0378; J0456; J0696; J1644; J1815; J2919; J7030

== ENCOUNTER 2024-09-22 13:13 | Emergency (ER) | payer MEDICARE, OTHER ==
[~2024-09-22] VITALS: Ht 162.6 cm; Wt 90.9 kg
[~2024-09-22 13:13] MED LIST changes: +BUPR-72 PO; -BUPR-726 PO; +CEFD300C3 PO; +CODE10LI2 PO; +FLUT1BLS4 INH; +HUM7525 SQ; -LACT1CAP26 PO; +LANTUS SQ; +LANTUS SUBCUT; -LEVO750T68 PO; +LOSA50TA64 PO; -MAGN400T39 PO; +METO-395 PO; -UMEC1DIS INH
[2024-09-22 13:15] VITALS: TEMP 98.2
--- NOTE | 2024-09-22 13:18 | ELECTROCARDIOGRAPH REPORT ---
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 Talon Pina Measurements Intervals [place] Rate: 105 P: 79 [place]: 158 QRS: 91 QRSD: 95 T: 69 QT: 315 QTc: 417 Interpretive Statements Sinus tachycardia Consider left atrial enlargement Right axis deviation Low voltage, precordial leads Probable anteroseptal infarct, old Electronically Signed On 09-22-2024 18:22:[address] Talon Pina Please click the below link to view image of tracing.
[2024-09-22 13:35] LABS: MEAN PLATELET VOLUME 8.1 FL (7.4-10.4); RED CELL DISTRIBUTION WIDTH 14.7 % (11.5-14.5)
[2024-09-22 13:56] LABS: CREATININE 0.79 MG/DL (0.40-0.90); PRO BRAIN NATRIURETIC PEPTIDE 58 PG/ML (0-450); TOTAL CARBON DIOXIDE 35.6 MMOL/L (24-32); eCRCL 51 ML/MIN; eGFR 70 ML/MIN
[2024-09-22 15:00] VITALS: BP 129/81; PULSE 100; O2SAT 97
[2024-09-22 15:28] VITALS: RESP 13
--- NOTE | 2024-09-22 15:45 | Physician Documentation ---
History of Present Illness ~ Chief Complaint: Hypertension Stated Complaint: HIGH BLOOD PRESSURE Time Seen by MD: 14:38 Primary Medical Doctor: Dr. Abdirahman LONGORIA This very pleasant 78-year-old female presents to the ED today with a complaint of hypertension without any other associated symptoms. She states she was having difficulty with her dex calm glucose monitoring having erratic readings which caused her to call the ambulance. On once the ambulance determined that her glucose was within normal limits they made note of an elevated blood pressure. Therefore they are offered transport to the ED for evaluation. Patient has maintained that she has not had any chest pain headache shortness of breath dizziness syncope. Day of Onset: Sep 22, 2024 Medication Reconciliation Allergies: Coded Allergies: Penicillins (Verified Allergy, Unknown, 07/28/24) Sulfa (Sulfonamide Antibiotics) (Verified Allergy, Unknown, 07/28/24) Scheduled Bupropion HCl (Bupropion HCl Sr), 1 TAB PO BID, (Reported) Calcium Carbonate/Vitamin D3 (Calcium 600 + Vit D 400 Softgl), 1 CAP PO Q12H, (Reported) Cefdinir (Cefdinir), 1 CAP PO Q12H Esomeprazole Magnesium (Esomeprazole Magnesium), 1 CAP PO BID, (Reported) Ferrous Sulfate (Iron), 1 TAB PO Q12H, (Reported) Fluticasone/Umeclidin/Vilanter (Trelegy Ellipta 100-62.5-25), 1 PUFFS INH DAILY, (Reported) Gabapentin (Gabapentin), 1 CAP PO DAILY, (Reported) Insulin Glargine,Hum.rec.anlog* (Lantus*), 10 UNITS SUBCUT HS, (Reported) Insulin Glargine,Hum.rec.anlog* (Lantus*), 12 UNITS SQ DAILY, (Reported) Ipratropium/Albuterol Sulfate (Combivent Respimat Inhal [place]), 2 PUFFS INH BID Losartan Potassium (Losartan Potassium), 50 MG PO DAILY Metformin Hcl* (Metformin ER*), 2 TAB PO DAILY, (Reported) Metoprolol Succinate (Metoprolol Succinate), 25 MG PO DAILY [place]-3 Acid Ethyl Esters ([place]-3 Acid Ethyl Esters), 2 CAP PO BID, (Reported) Pioglitazone Hcl (Pioglitazone Hcl), 1 TAB PO DAILY, (Reported) Pramipexole Di-Hcl (Pramipexole Dihydrochloride), 1 TAB PO BID, (Reported) Rosuvastatin Calcium (Rosuvastatin Calcium), 1 TAB PO DAILY, (Reported) Semaglutide (Rybelsus), 1 TAB PO QAM, (Reported) Venlafaxine Hcl (Venlafaxine Hcl Er), 1 CAP PO HS, (Reported) Scheduled PRN Codeine Phosphate/Guaifenesin (Guaifen-Codeine 200-20 mg/10Ml), 5 ML PO Q6H PRN PRN for cough and congestion Miscellaneous Medications Insulin Aspart (Novolog), 1 UNITS SQ, (Reported) Past Medical History Past Medical History: *CARDIOVASCULAR*, COPD, Diabetes, Cellulitis Past Surgical History: noncontributory Patient History: FH: emphysema FATHER, , Age: 74 MOTHER, , Age: 76 Lives In: Home Occupation: retired Review of Systems All Other Systems at this time: Reviewed and Negative ROS As stated above in the HPI, otherwise all systems are reviewed and negative. Physical Exam Vital Signs: Temperature: 98.2, Source: Temporal, Heart Rate: 100, Respiratory Rate: 13, BP: 129/81, Pulse Oximetry: 97, Weight: 90.910 Oxygen Flow Rate: 4.0 Physical Exam Respiratory: Lungs clear, no respiratory distress. Chest: No accessory muscle use. Cardiovascular: Regular rate and rhythm, no murmurs. Progress Results/Orders Results/Orders Vital Signs 09/22/24 09/22/24 09/22/24 09/22/24 13:15 14:00 15:00 15:28 Temp 98.2 Pulse 106 101 100 Resp 15 20 14 13 B/P (MAP) 155/84 143/63 (89) 129/81 (97) Pulse Ox 97 97 97 O2 Flow Rate 4.0 4.0 4.0 Laboratory Tests Test 09/22/24 13:24 White Blood Count 6.4 Red Blood Count 4.75 Hemoglobin 13.1 Hematocrit 38.9 Mean Corpuscular Volume 81.9 Mean Corpuscular Hemoglobin 27.6 Mean Corpuscular Hemoglobin Concent 33.6 Red Cell Distribution Width 14.7 H Platelet Count 212 Mean Platelet Volume 8.1 Neutrophils (%) (Auto) 72.9 Lymphocytes (%) (Auto) 16.4 L Monocytes (%) (Auto) 8.4 Eosinophils (%) (Auto) 1.9 Basophils (%) (Auto) 0.4 Neutrophils # (Auto) 4.7 Lymphocytes # (Auto) 1.1 Monocytes # (Auto) 0.5 Eosinophils # (Auto) 0.1 Basophils # (Auto) 0.0 CBC Comment Sodium Level 135 Potassium Level 4.2 Chloride Level 97 L Carbon Dioxide Level 35.6 H Anion Gap 2 L Blood Urea Nitrogen 22 H Creatinine 0.79 Estimated GFR/1.73 m2 70 BUN/Creatinine Ratio 27.8 H Glucose Level 177 H Calcium Level 8.6 Troponin I High Sensitivity 7 Pro-B-Type Natriuretic Peptide 58 Albumin 3.4 Chemistry Comments Medical Decision Making Findings Patient has been hemodynamically stable throughout her stay in the ED her laboratory values are reassuring x-ray shows no signs of infiltrate or cardiomegaly EKG reassuring normal sinus from her blood pressures have also on maintain within expected limits This time I do not see any reason for further evaluation. I spoke to the patient and I did offer hospital admission she however declined. She would like to be evaluated may outpatient setting Differential Dx:Considerations: Include CHF, Include HTN, essential, Include HTN, accelerated, Include HTN, malignant, Include HTN, encephalopathy, Include medical noncompliance, Include medication withdrawal, Include pulmonary edema, Include renal failure, Include -induced, Include other Departure Disposition: 01 HOME / SELF CARE / HOMELESS Impression: Primary Impression: Benign hypertension Discharge Instructions: Hypertension, Adult, Mgid-db-Rfew Referrals: NO PRIMARY CARE PROVIDER (PCP) Education Educated: Patient Signature Scribe Signature: fg Attestation: Scribed for Eugenio Brunner Assistant Librarian by Eugenio Rondon NP . 09/22/24 15:41 EUGENIO BRUNNER NP Sep 22, 2024 15:45
--- NOTE | 2024-09-23 09:37 | RADIOLOGY REPORT ---
CHEST RADIOGRAPH Indication: CP Technique: Single frontal view of the chest was obtained COMPARISON: DI CHEST,SINGLE VIEW on DOS: 07/28/24, DI CHEST,SINGLE VIEW on DOS: 03/17/24, DI CHEST,SING LE VIEW on DOS: 03/09/24, DI CHEST,SINGLE VIEW on DOS: 12/14/22 FINDINGS: Lines and Tubes: None Lungs: Clear Pleura: No effusion. No pneumothorax. Cardiomediastinal contours: Unremarkable Bones: Unremarkable IMPRESSION: No acute disease.
== END 2024-09-22 16:14 | disposition home or self-care (01) ==
LOC: ER 13:14
DX: I10 Essential (primary) hypertension (principal); E11.9 Type 2 diabetes mellitus without complications; J44.9 Chronic obstructive pulmonary disease, unspecified; R06.02 Shortness of breath; Z88.0 Allergy status to penicillin; Z88.2 Allergy status to sulfonamides
CPT/HCPCS: 36415; 71045; 80048; 83880; 84484; 85025; 93005; 99285